=== PATIENT | female | born 1990 | race Caucasian/White ===

== ENCOUNTER → 2017-09-03 | Outpatient (CLI) | payer OTHER ==
[2017-09-03 12:21] LABS: BASO % 0.7 % (0.0-1.0); EOS # 0.2 10^3/uL (0.0-0.50); EOS % 3.9 % (0.0-3.0); HEMATOCRIT 38.7 % (36.0-47.0); HEMOGLOBIN 12.6 g/dl (12.0-15.5); IMMATURE GRANULOCYTE % 0.2 % (0-3.0); LYMPH # 2.3 10^3/uL (1.5-6.5); LYMPH % 38.3 % (24.0-44.0); MEAN CORPUSCULAR HEMOGLOBIN 28.3 pg (27.0-33.0); MEAN CORPUSCULAR HGB CONC 32.6 g/dl (32.0-36.5); MONO # 0.6 10^3/uL (0.0-0.8); MONO % 9.7 % (0.0-5.0); NEUTROPHILS # 2.8 10^3/uL (1.8-7.7); NEUTROPHILS % 47.2 % (36.0-66.0); PLATELET COUNT, AUTOMATED 331 10^3/uL (150-450); RED BLOOD COUNT 4.45 10^6/uL (4.00-5.40); RED CELL DISTRIBUTION WIDTH 13.2 % (11.5-14.5); WHITE BLOOD COUNT 5.9 10^3/uL (4.0-10.0)
[2017-09-03 12:55] LABS: THYROGLOBULIN ANTIBODY 25.3 U/ML (<60.0); THYROID PEROXIDASE ANTIBODY 80.6 U/ML (<60.0); TOTAL 25(OH) VITAMIN D 29.6 NG/ML (30.0-100.0); VITAMIN B12 LEVEL 799 PG/ML (247-911)
[2017-09-03 12:59] LABS: ALBUMIN 3.6 GM/DL (3.2-5.2); ALBUMIN/GLOBULIN RATIO 1.06 (1.00-1.93); ALKALINE PHOSPHATASE 89 U/L (45-117); ALT/SGPT 23 U/L (12-78); ANION GAP 7 MEQ/L (8-16); AST/SGOT 16 U/L (7-37); BILIRUBIN,TOTAL 0.2 MG/DL (0.2-1.0); BLOOD UREA NITROGEN 9 MG/DL (7-18); CALCIUM LEVEL 9.4 MG/DL (8.5-10.1); CARBON DIOXIDE LEVEL 29 MEQ/L (21-32); CHLORIDE LEVEL 106 MEQ/L (98-107); CREATININE FOR GFR 0.62 MG/DL (0.55-1.30); FREE T3 3.3 PG/ML (2.2-4.0); GLOMERULAR FILTRATION RATE > 60.0 (>60); GLUCOSE, FASTING 87 MG/DL (70-100); IRON (FE) 100 UG/DL (50-170); PERCENT SATURATION 32.1 % (13.2-45.0); POTASSIUM SERUM 4.2 MEQ/L (3.5-5.1); SODIUM LEVEL 142 MEQ/L (136-145); TOTAL IRON BINDING CAPACITY 312 UG/DL (250-450)
[2017-09-11 00:07] LABS: GLUTATHIONE QT 257 ug/mL (176-323); MAGNESIUM RBC LEVEL 6.8 mg/dL (4.2-6.8); METHYLMALONIC ACID 108 nmol/L (0-378); T3 REVERSE 17.7 ng/dL (9.2-24.1); TISSUE TRANSGLUTAMINASE IgA <2 U/mL (0-3); UNITSIGA FOR GLIADIN IGA 6 units (0-19); UNITSIGG FOR GLIADIN IGG 3 units (0-19)
[2017-09-11 00:07] LABS: ALUMINUM LEVEL 3 ug/L (0-9)
== END ==
LOC: M LAB 10:55
DX: F33.2 Major depressive disorder, recurrent severe without psychotic features (principal)

== ENCOUNTER → 2017-09-23 | Outpatient (CLI) | payer OTHER | LOC: M SLEEP 08:14 | DX: R56.9 Unspecified convulsions (principal) | CPT/HCPCS: 95819 ==

== ENCOUNTER 2017-09-24 14:49 | Inpatient (IN) | payer OTHER ==
[2017-09-24 16:41] LABS: HEMATOCRIT 38.1 % (36.0-47.0); HEMOGLOBIN 12.6 g/dl (12.0-15.5); MEAN CORPUSCULAR HEMOGLOBIN 28.4 pg (27.0-33.0); MEAN CORPUSCULAR HGB CONC 33.1 g/dl (32.0-36.5); MEAN CORPUSCULAR VOLUME 85.8 fl (80.0-96.0); PLATELET COUNT, AUTOMATED 360 10^3/uL (150-450); RED BLOOD COUNT 4.44 10^6/uL (4.00-5.40); RED CELL DISTRIBUTION WIDTH 12.9 % (11.5-14.5); WHITE BLOOD COUNT 9.1 10^3/uL (4.0-10.0)
[2017-09-24 17:02] LABS: CONTROL LINE HCG INT CTR LINE PRESENT; HCG, SERUM QUALITATIVE NEGATIVE (NEGATIVE)
[2017-09-24 17:18] LABS: ALBUMIN 3.7 GM/DL (3.2-5.2); ALBUMIN/GLOBULIN RATIO 1.03 (1.00-1.93); ALKALINE PHOSPHATASE 83 U/L (45-117); ALT/SGPT 19 U/L (12-78); ANION GAP 11 MEQ/L (8-16); AST/SGOT 14 U/L (7-37); BILIRUBIN,DIRECT < 0.1 MG/DL (0.0-0.2); BILIRUBIN,TOTAL 0.2 MG/DL (0.2-1.0); BLOOD UREA NITROGEN 7 MG/DL (7-18); CALCIUM LEVEL 8.7 MG/DL (8.5-10.1); CARBON DIOXIDE LEVEL 24 MEQ/L (21-32); CHLORIDE LEVEL 109 MEQ/L (98-107); CREATININE FOR GFR 0.59 MG/DL (0.55-1.30); ETHYL ALCOHOL (ETHANOL) 0.004 % (0.000-0.010); GLOMERULAR FILTRATION RATE > 60.0 (>60); GLUCOSE, FASTING 100 MG/DL (70-100); POTASSIUM SERUM 3.9 MEQ/L (3.5-5.1); SALICYLATE LEVEL < 1.7 MG/DL (5.0-30.0); SODIUM LEVEL 144 MEQ/L (136-145); TOTAL PROTEIN 7.3 GM/DL (6.4-8.2)
[2017-09-24 17:20] LABS: ACETAMINOPHEN LEVEL < 2.0 UG/ML (10.0-30.0)
[2017-09-24 17:57] LABS: AMPHETAMINES LEVEL URINE NEGATIVE (NEGATIVE); BARBITURATES URINE NEGATIVE (NEGATIVE); BENZODIAZEPINES URINE NEGATIVE (NEGATIVE); CANNABINOIDS URINE NEGATIVE (NEGATIVE); COCAINE METABOLITE URINE NEGATIVE (NEGATIVE); METHADONE URINE NEGATIVE (NEGATIVE); OPIATES URINE NEGATIVE (NEGATIVE); PHENCYCLIDINE URINE NEGATIVE (NEGATIVE)
[2017-09-24] MEDS ORDERED: hydrOXYzine 50 MG TAB PO (19:45)
[2017-09-24] MEDS ORDERED: ACETAMINOPHEN TAB 650MG DOSE (2X325MG) PO (19:45)
[2017-09-24] MEDS ORDERED: traZODone 50 MG TAB PO (19:45)
[2017-09-24] MEDS ORDERED: MAALOX 30 ML SUSP *UDC PO (19:45)
[2017-09-24] MEDS ORDERED: MOM 30ML SUSPENSION UDC PO (19:45)
[2017-09-25] MEDS: LACTOBACILLUS ACIDOPHILUS CAP (BACID) PO (08:08)
[2017-09-25] MEDS: FEXOFENADINE 60 MG TAB PO (08:08)
[2017-09-25] MEDS: CYANOCOBALAMIN 500 MCG TAB PO (08:08)
[2017-09-25] MEDS: OMEGA-3 1050MG CAPSULE PO ×2 (08:08→20:34)
[2017-09-25] MEDS: ASCORBIC ACID 250 MG TAB PO (08:08)
[2017-09-25] MEDS: VITAMIN D 1,000 INTERNATIONAL UNITS TABLET PO (08:08)
[2017-09-25] MEDS ORDERED: SERTRALINE HCL 50 MG TAB PO (09:00)
[2017-09-25] MEDS: VIIBRYD 20 MG PO (20:34)
[2017-09-26] MEDS: VIIBRYD 20 MG PO (08:25)
[2017-09-26] MEDS: CYANOCOBALAMIN 500 MCG TAB PO (08:26)
[2017-09-26] MEDS: FEXOFENADINE 60 MG TAB PO (08:26)
[2017-09-26] MEDS: OMEGA-3 1050MG CAPSULE PO ×2 (08:26→20:45)
[2017-09-26] MEDS: ASCORBIC ACID 250 MG TAB PO (08:26)
[2017-09-26] MEDS: VITAMIN D 1,000 INTERNATIONAL UNITS TABLET PO (08:26)
[2017-09-26] MEDS: LACTOBACILLUS ACIDOPHILUS CAP (BACID) PO (08:26)
[2017-09-27] MEDS: CYANOCOBALAMIN 500 MCG TAB PO (08:06)
[2017-09-27] MEDS: ASCORBIC ACID 250 MG TAB PO (08:06)
[2017-09-27] MEDS: FEXOFENADINE 60 MG TAB PO (08:06)
[2017-09-27] MEDS: OMEGA-3 1050MG CAPSULE PO ×2 (08:06→20:52)
[2017-09-27] MEDS: VITAMIN D 1,000 INTERNATIONAL UNITS TABLET PO (08:07)
[2017-09-27] MEDS: VIIBRYD 20 MG PO (08:07)
[2017-09-27] MEDS: LACTOBACILLUS ACIDOPHILUS CAP (BACID) PO (09:00)
[2017-09-28] MEDS: ASCORBIC ACID 250 MG TAB PO (08:33)
[2017-09-28] MEDS: FEXOFENADINE 60 MG TAB PO (08:33)
[2017-09-28] MEDS: CYANOCOBALAMIN 500 MCG TAB PO (08:33)
[2017-09-28] MEDS: OMEGA-3 1050MG CAPSULE PO ×2 (08:33→20:42)
[2017-09-28] MEDS: VITAMIN D 1,000 INTERNATIONAL UNITS TABLET PO (08:33)
[2017-09-28] MEDS: LACTOBACILLUS ACIDOPHILUS CAP (BACID) PO (08:33)
[2017-09-28] MEDS: VIIBRYD 20 MG PO (08:33)
[2017-09-29] MEDS: LACTOBACILLUS ACIDOPHILUS CAP (BACID) PO (08:25)
[2017-09-29] MEDS: CYANOCOBALAMIN 500 MCG TAB PO (08:25)
[2017-09-29] MEDS: ASCORBIC ACID 250 MG TAB PO (08:26)
[2017-09-29] MEDS: FEXOFENADINE 60 MG TAB PO (08:26)
[2017-09-29] MEDS: VITAMIN D 1,000 INTERNATIONAL UNITS TABLET PO (08:26)
[2017-09-29] MEDS: VIIBRYD 20 MG PO (08:26)
[2017-09-29] MEDS: OMEGA-3 1050MG CAPSULE PO ×2 (08:26→21:06)
[2017-09-30] MEDS: VITAMIN D 1,000 INTERNATIONAL UNITS TABLET PO (08:04)
[2017-09-30] MEDS: LACTOBACILLUS ACIDOPHILUS CAP (BACID) PO (08:04)
[2017-09-30] MEDS: OMEGA-3 1050MG CAPSULE PO (08:05)
[2017-09-30] MEDS: ASCORBIC ACID 250 MG TAB PO (08:05)
[2017-09-30] MEDS: VIIBRYD 20 MG PO (08:05)
[2017-09-30] MEDS: CYANOCOBALAMIN 500 MCG TAB PO (08:05)
[2017-09-30] MEDS: FEXOFENADINE 60 MG TAB PO (08:05)
== END 2017-09-30 11:50 | disposition home or self-care (01) | DRG 885 ==
LOC: M ED 14:49 → M ED INP 19:42 → M PSY 20:34
DX: F33.2 Major depressive disorder, recurrent severe without psychotic features (principal); Z79.899 Other long term (current) drug therapy; E74.39 Other disorders of intestinal carbohydrate absorption; J30.9 Allergic rhinitis, unspecified

== ENCOUNTER → 2018-01-06 | Outpatient (REF) | payer OTHER ==
[2018-01-06 12:14] LABS: BASO # 0.1 10^3/uL (0.0-0.2); BASO % 0.5 % (0.0-1.0); EOS # 0.4 10^3/uL (0.0-0.50); EOS % 4.2 % (0.0-3.0); HEMATOCRIT 38.4 % (36.0-47.0); HEMOGLOBIN 12.5 g/dl (12.0-15.5); IMMATURE GRANULOCYTE % 0.3 % (0-3.0); LYMPH # 3.9 10^3/uL (1.5-6.5); LYMPH % 41.2 % (24.0-44.0); MEAN CORPUSCULAR HEMOGLOBIN 27.7 pg (27.0-33.0); MEAN CORPUSCULAR HGB CONC 32.6 g/dl (32.0-36.5); MEAN CORPUSCULAR VOLUME 85.1 fl (80.0-96.0); MONO # 0.7 10^3/uL (0.0-0.8); MONO % 7.8 % (0.0-5.0); NEUTROPHILS # 4.3 10^3/uL (1.8-7.7); PLATELET COUNT, AUTOMATED 358 10^3/uL (150-450); RED BLOOD COUNT 4.51 10^6/uL (4.00-5.40); RED CELL DISTRIBUTION WIDTH 12.7 % (11.5-14.5); WHITE BLOOD COUNT 9.4 10^3/uL (4.0-10.0)
[2018-01-06 13:32] LABS: ALBUMIN 3.7 GM/DL (3.2-5.2); ALBUMIN/GLOBULIN RATIO 1.16 (1.00-1.93); ALKALINE PHOSPHATASE 77 U/L (45-117); ALT/SGPT 26 U/L (12-78); ANION GAP 9 MEQ/L (8-16); AST/SGOT 15 U/L (7-37); BILIRUBIN,TOTAL 0.3 MG/DL (0.2-1.0); BLOOD UREA NITROGEN 9 MG/DL (7-18); CARBON DIOXIDE LEVEL 29 MEQ/L (21-32); CHLORIDE LEVEL 104 MEQ/L (98-107); CHOLESTEROL LEVEL 227 MG/DL (<200); CHOLESTEROL RISK RATIO 7.093 (<5); CREATININE FOR GFR 0.66 MG/DL (0.55-1.30); FREE T3 2.6 PG/ML (2.2-4.0); FREE T4 0.97 NG/DL (0.76-1.46); GLOMERULAR FILTRATION RATE > 60.0 (>60); GLUCOSE, FASTING 78 MG/DL (70-100); HDL CHOLESTEROL 32 MG/DL (>40); LDL CHOLESTEROL 171 MG/DL (<100); NON-HDL-C 195 MG/DL; SODIUM LEVEL 142 MEQ/L (136-145); TOTAL 25(OH) VITAMIN D 58.4 NG/ML (30.0-100.0); TOTAL PROTEIN 6.9 GM/DL (6.4-8.2); TRIGLYCERIDES LEVEL 118 MG/DL (<150)
[2018-01-07 08:39] LABS: THYROID PEROXIDASE ANTIBODY 87.8 U/ML (<60.0)
[2018-01-07 08:48] LABS: THYROGLOBULIN ANTIBODY 43.9 U/ML (<60.0)
== END ==
LOC: M LABDRAWC 11:43
DX: F33.2 Major depressive disorder, recurrent severe without psychotic features (principal)

== ENCOUNTER → 2018-03-20 | Outpatient (REF) | payer OTHER | LOC: M SFHCCLAY 07:08 | DX: E78.00 Pure hypercholesterolemia, unspecified (principal) ==

== ENCOUNTER → 2018-03-24 | Outpatient (REF) | payer OTHER ==
[2018-03-24 19:35] LABS: CHOLESTEROL LEVEL 208 MG/DL (<200); CHOLESTEROL RISK RATIO 6.117 (<5); HDL CHOLESTEROL 34 MG/DL (>40); LDL CHOLESTEROL 153 MG/DL (<100); NON-HDL-C 174 MG/DL; TRIGLYCERIDES LEVEL 104 MG/DL (<150)
== END ==
LOC: M SFHCCLAY 17:25
DX: E78.00 Pure hypercholesterolemia, unspecified (principal)
CPT/HCPCS: 80061

== ENCOUNTER → 2018-04-17 | Outpatient (REF) | payer OTHER ==
[~2018-04-17] MED LIST: ABIL1TAB13 PO; ARIP5TA PO; FEXO180T58 PO; HYDRO50TAB PO; OMEG1CAP16 PO; PROBCAP4 PO; TRAZO50TA PO; VIIB20TA PO; VITA100072 PO; VITA1TAB23 PO; VITA2000 PO; [UNRECOGNIZED DRUG - CODE] PO
[2018-04-17 17:48] LABS: FREE T3 2.9 PG/ML (2.2-4.0); FREE T4 1.03 NG/DL (0.76-1.46); THYROID STIMULATING HORMONE 1.86 uIU/ML (0.358-3.740)
[2018-04-17 17:51] LABS: TOTAL 25(OH) VITAMIN D 70.5 NG/ML (30.0-100.0)
[2018-04-17 17:52] LABS: THYROGLOBULIN ANTIBODY 23.9 U/ML (<60.0); THYROID PEROXIDASE ANTIBODY 92.2 U/ML (<60.0)
== END ==
LOC: M LABDRAWC 16:04
PROVIDERS: ATTEND Nurse Practitioner Pediatrics
DX: E55.9 Vitamin D deficiency, unspecified (principal); F60.3 Borderline personality disorder; F33.2 Major depressive disorder, recurrent severe without psychotic features

== ENCOUNTER → 2018-08-08 | Outpatient (CLI) | payer OTHER ==
[~2018-08-08] MED LIST changes: +ARIP1TAB6 PO; -ARIP5TA PO; +VITA100018 PO; -VITA100072 PO
[2018-08-08 19:29] LABS: CHOLESTEROL RISK RATIO 5.317 (<5)
== END ==
LOC: M WUC 11:05
PROVIDERS: ATTEND Family Medicine
DX: E78.00 Pure hypercholesterolemia, unspecified (principal)

== ENCOUNTER → 2018-11-09 | Outpatient (CLI) | payer OTHER ==
[~2018-11-09] MED LIST changes: +TRAZ1TAB10 PO; -TRAZO50TA PO
--- NOTE | 2018-11-09 16:24 | REP ---
Clinical: Medial right hand pain Technique: AP, lateral, bilateral oblique views right hand . Findings: The osseous structures and joint spaces are intact and normal. There is no evidence for acute fracture or dislocation. Surrounding soft tissues are unremarkable. No subcutaneous emphysema or radiodense foreign body. Impression: Age-appropriate right hand series . No acute fracture or dislocation. Electronically Signed by Garth Hopson MD 11/09/2018 04:15 P
== END ==
LOC: M WUC 16:02
PROVIDERS: ATTEND Physician Assistant
DX: M79.641 Pain in right hand (principal)

== ENCOUNTER → 2019-04-05 | Outpatient (REF) | payer OTHER ==
[~2019-04-05] MED LIST changes: +HYDR1TAB33 PO; -HYDRO50TAB PO
[2019-04-05 18:11] LABS: ALBUMIN 3.4 GM/DL (3.2-5.2); ALT/SGPT 18 U/L (12-78); BILIRUBIN,TOTAL 0.2 MG/DL (0.2-1.0); BLOOD UREA NITROGEN 8 MG/DL (7-18); CALCIUM LEVEL 9.3 MG/DL (8.5-10.1); CARBON DIOXIDE LEVEL 27 MEQ/L (21-32); CHLORIDE LEVEL 105 MEQ/L (98-107); CHOLESTEROL LEVEL 214 MG/DL (<200); CHOLESTEROL RISK RATIO 5.631 (<5); CREATININE FOR GFR 0.68 MG/DL (0.55-1.30); FREE T4 0.92 NG/DL (0.76-1.46); GLOMERULAR FILTRATION RATE > 60.0 (>60); GLUCOSE, FASTING 72 MG/DL (70-100); HDL CHOLESTEROL 38 MG/DL (>40); LDL CHOLESTEROL 145 MG/DL (<100); NON-HDL-C 176 MG/DL; POTASSIUM SERUM 4.4 MEQ/L (3.5-5.1); SODIUM LEVEL 141 MEQ/L (136-145); THYROID STIMULATING HORMONE 0.491 uIU/ML (0.358-3.740); TOTAL PROTEIN 6.9 GM/DL (6.4-8.2); TRIGLYCERIDES LEVEL 155 MG/DL (<150)
== END ==
LOC: M SFHCCLAY 11:20
PROVIDERS: ATTEND Family Medicine
DX: E78.00 Pure hypercholesterolemia, unspecified (principal)

== ENCOUNTER → 2019-04-10 | Outpatient (CLI) | payer OTHER ==
[2019-04-10 14:09] LABS: FREE T3 2.6 PG/ML (2.2-4.0); FREE T4 0.89 NG/DL (0.76-1.46)
[2019-04-13 10:16] LABS: PROGESTERONE 0.4 NG/ML; THYROGLOBULIN ANTIBODY 27.6 U/ML (<60.0); THYROID PEROXIDASE ANTIBODY 80.7 U/ML (<60.0); TOTAL 25(OH) VITAMIN D 58.2 NG/ML (30.0-100.0)
[2019-04-14 08:43] LABS: ESTROGENS TOTAL 169 pg/mL (.); INSULIN LEVEL 14.6 uIU/mL (2.6-24.9); TESTOSTERONE FREE (DIRECT) 2.4 pg/mL (0.0-4.2)
== END ==
LOC: M WUC 08:03
PROVIDERS: ATTEND Nurse Practitioner Pediatrics
DX: F33.2 Major depressive disorder, recurrent severe without psychotic features (principal); F60.3 Borderline personality disorder; E55.9 Vitamin D deficiency, unspecified